=== PATIENT | male | born 1985 | race Caucasian/White ===

== ENCOUNTER 2017-04-29 13:39 | Inpatient (IN) | payer OTHER ==
[~2017-04-29] VITALS: Ht 180.3 cm; Wt 125.0 kg
[~2017-04-29 13:39] MED LIST: CLIN-73 PO; TRAM50TA2 PO
[2017-04-29 13:44] VITALS: Ht 180.3 cm; Wt 125.0 kg
[2017-04-29] MEDS ORDERED: ONDANSETRON 4 MG INJ IV STA (14:26)
[2017-04-29] MEDS ORDERED: KETOROLAC 30 MG INJ IV STA (14:26)
[2017-04-29] MEDS ORDERED: morphine 4 MG/ML VIAL IV STA (14:26)
[2017-04-29] MEDS ORDERED: SODIUM CHLORIDE 0.9% 1L BAG IV* STA (14:26)
[2017-04-29] MEDS ORDERED: PIPER-TAZO 3.375 GM IV (PMX) 100 ML IVPB STA (14:26)
[2017-04-29] MEDS ORDERED: VANCOMYCIN 1 GM (PMX) 250 ML IVPB ONE (14:30)
[2017-04-29 14:34] LABS: BASOPHILS % 0.3 % (0.0-2.0); EOSINOPHILS # 0.1 10^3/ul (0.0-0.5); HEMATOCRIT 42.8 % (42.0-52.0); HEMOGLOBIN 14.4 g/dl (14.0-18.0); LYMPHOCYTES # 2.1 10^3/ul (0.8-2.9); MEAN CORPUSCULAR HGB CONC 33.6 g/dl (32.0-37.0); MEAN CORPUSCULAR VOLUME 83.1 fl (82.0-101.0); MEAN PLATELET VOLUME 9.2 fl (7.4-10.4); MONOCYTE # 0.6 10^3/ul (0.3-0.9); MONOCYTES % 8.9 % (0.0-11.0); NEUTROPHIL # 4.3 10^3/ul (1.6-7.5); NEUTROPHILS % 59.4 % (39.0-77.0); PLATELET COUNT 238 10^3/UL (140-415); RED BLOOD COUNT 5.15 10^6/ul (4.70-6.10); RED CELL DISTRIBUTION WIDTH 12.4 % (11.5-14.5); WHITE BLOOD COUNT 7.2 10^3/ul (4.8-10.8)
[2017-04-29 14:46] LABS: INR 0.96; PROTIME 12.8 Sec (12.2-14.2)
[2017-04-29 14:47] LABS: PARTIAL THROMBOPLASTIN TIME 28.1 Sec (25.0-35.0)
[2017-04-29 14:51] LABS: ALBUMIN 4.1 g/dl (3.3-4.9); ALBUMIN/GLOBULIN RATIO 1.24; BILIRUBIN,INDIRECT 0.4 mg/dl (0-1.1); BILIRUBIN,TOTAL 0.4 mg/dl (0.2-1.3); CALCIUM 9.3 mg/dl (8.4-10.2); CREATININE 0.82 mg/dl (0.61-1.24); POTASSIUM 4.4 mmol/L (3.5-5.1); TOTAL PROTEIN 7.4 g/dl (6.1-8.1)
[2017-04-29 15:11] LABS: ADD UMIC NO; UR ASCORBIC ACID NEGATIVE (NEGATIVE); UR BILIRUBIN (Dip) NEGATIVE (NEGATIVE); UR BLOOD (Dip) NEGATIVE (NEGATIVE); UR CLARITY CLEAR (CLEAR); UR COLOR YELLOW (YELLOW); UR GLUCOSE (Dip) NEGATIVE (NEGATIVE); UR KETONES (Dip) NEGATIVE (NEGATIVE); UR LEUKOCYTE ESTERASE (Dip) NEGATIVE Leu/ul (NEGATIVE); UR NITRITE (Dip) NEGATIVE (NEGATIVE); UR SPECIFIC GRAVITY (Dip) 1.019 (1.003-1.030); UR TOTAL PROTEIN (Dip) NEGATIVE (NEGATIVE); UR UROBILINOGEN (Dip) NEGATIVE (NEGATIVE)
[2017-04-29] MEDS ORDERED: METHOCARBAMOL 750 MG TAB PO ONE (16:00)
[2017-04-29] MEDS ORDERED: ONDANSETRON 4 MG INJ IV PRN (17:00)
[2017-04-29 17:01] VITALS: TEMP 98.7
[2017-04-29] MEDS ORDERED: SOD CHLORIDE 0.9% 1,000 ML IV SCH (17:03)
--- NOTE | 2017-04-29 17:04 | ERA ---
ER Documentation Chief Complaint Date/Time DATE: 04/29/17 TIME: 17:01 Chief Complaint BILAT LOWER EXT SWELLING WORSE X 2WEEKS HPI 32-year-old male presents for increasing lower extremity edema for 2 weeks. Has been on doxycycline and Bactrim for the pain he states. Says that he has very bad pain including in his back and he took an OxyContin before he came in. He requests medication that is stronger. No fevers or chills. ROS All systems reviewed and are negative except as per history of present illness. Medications Home Meds Active Scripts Tramadol HCl (Tramadol HCl) 50 Mg Tablet, 50 MG PO Q8H Y for PAIN, #120 TAB Prov:OZZIE GROSS MD 05/29/16 Clindamycin Hcl* (Clindamycin Hcl*) 300 Mg Capsule, 600 MG PO Q8 for 8 Days, CAP Prov:OZZIE GROSS MD 05/29/16 Allergies Allergies: Coded Allergies: acetaminophen (Verified Allergy, Unknown, 05/26/16) codeine (Verified Allergy, Unknown, 05/26/16) PMhx/Soc History of Surgery: Yes (RIGHT KNEE SURGERY ) Anesthesia Reaction: No Hx Neurological Disorder: No Hx Respiratory Disorders: No Hx Cardiac Disorders: No Hx Psychiatric Problems: No Hx Miscellaneous Medical Probl: No Hx Alcohol Use: No Hx Substance Use: No Hx Tobacco Use: No Smoking Status: Never smoker Physical Exam Vitals Vital Signs Date Time Temp Pulse Resp B/P Pulse Ox O2 Delivery O2 Flow Rate FiO2 04/29/17 13:44 98.3 75 18 137/79 98 Physical Exam Const: [] No distress Head: Atraumatic Eyes: Normal Conjunctiva ENT: Normal External Ears, Nose and Mouth. Neck: Full range of motion..~ No meningismus. Resp: Clear to auscultation bilaterally Cardio: Regular rate and rhythm, no murmurs Abd: Soft, non tender, non distended. Normal bowel sounds Skin: No petechiae or rashes Ext: No cyanosis, bilateral lower extremity swelling with redness and calor. Distal pulses intact all 4 extremities Neur: Awake and alert and oriented 3, no focal deficits Psych: Normal Mood and Affect Result Diagram: 04/29/17 1415 04/29/17 1415 Results 24 hrs Laboratory Tests Test 04/29/17 14:15 04/29/17 14:55 04/29/17 16:05 White Blood Count 7.210^3/ul Red Blood Count 5.1510^6/ul Hemoglobin 14.4g/dl Hematocrit 42.8% Mean Corpuscular Volume 83.1fl Mean Corpuscular Hemoglobin 28.0pg Mean Corpuscular Hemoglobin Concent 33.6g/dl Red Cell Distribution Width 12.4% Platelet Count 12260^3/UL Mean Platelet Volume 9.2fl Neutrophils % 59.4% Lymphocytes % 29.0% Monocytes % 8.9% Eosinophils % 2.0% Basophils % 0.3% Nucleated Red Blood Cells % 0.0/100WBC Neutrophils # 4.310^3/ul Lymphocytes # 2.110^3/ul Monocytes # 0.610^3/ul Eosinophils # 0.110^3/ul Basophils # 0.010^3/ul Nucleated Red Blood Cells # 0.010^3/ul Prothrombin Time 12.8Sec Prothrombin Time Ratio 1.0 INR International Normalized Ratio 0.96 Activated Partial Thromboplast Time 28.1Sec Sodium Level 141mmol/L Potassium Level 4.4mmol/L Chloride Level 101mmol/L Carbon Dioxide Level 27mmol/L Anion Gap 17 Blood Urea Nitrogen 13mg/dl Creatinine 0.82mg/dl Glucose Level 93mg/dl Lactic Acid Level 1.2mmol/L 0.8mmol/L Calcium Level 9.3mg/dl Total Bilirubin 0.4mg/dl Direct Bilirubin 0.00mg/dl Indirect Bilirubin 0.4mg/dl Aspartate Amino Transf (AST/SGOT) 24IU/L Alanine Aminotransferase (ALT/SGPT) 46IU/L Alkaline Phosphatase 95IU/L Total Protein 7.4g/dl Albumin 4.1g/dl Globulin 3.30g/dl Albumin/Globulin Ratio 1.24 Urine Color YELLOW Urine Clarity CLEAR Urine pH 7.0 Urine Specific [place] 1.019 Urine Ketones NEGATIVEmg/dL Urine Nitrite NEGATIVEmg/dL Urine Bilirubin NEGATIVEmg/dL Urine Urobilinogen NEGATIVEmg/dL Urine Leukocyte Esterase NEGATIVELeu/ul Urine Hemoglobin NEGATIVEmg/dL Urine Glucose NEGATIVEmg/dL Urine Total Protein NEGATIVEmg/dl Current Medications Medications (Trade) Dose Ordered Sig/Morgan Route PRN Reason Start Time Stop Time Status Last Admin Dose Admin Sodium Chloride 3880 ml 3,880 ml BOLUS OVER 2 HOURS STAT IV* 04/29/17 14:26 04/29/17 14:28 DC 04/29/17 14:48 Vancomycin HCl 250 ml @ 125 mls/hr ONCE ONCE IVPB 04/29/17 14:30 04/29/17 16:29 DC 04/29/17 16:27 Piperacillin Sod/ Tazobactam Sod (Zosyn 3.375gm/ 100 ml (Pmx)) 100 ml @ 200 mls/hr ONCE STAT IVPB 04/29/17 14:26 04/29/17 14:55 DC 04/29/17 14:47 Ondansetron HCl (Zofran Inj) 4 mg ONCE STAT IV 04/29/17 14:26 04/29/17 14:29 DC 04/29/17 14:52 Morphine Sulfate (morphine) 4 mg ONCE STAT IV 04/29/17 14:26 04/29/17 14:29 DC 04/29/17 14:47 Ketorolac Tromethamine (Toradol) 30 mg ONCE STAT IV 04/29/17 14:26 04/29/17 14:29 DC 04/29/17 14:47 Methocarbamol (Robaxin) 750 mg ONCE ONCE PO 04/29/17 16:00 04/29/17 16:01 DC 04/29/17 16:56 Ondansetron HCl (Zofran Inj) 4 mg BRIDGE ORDER PRN IV NAUSEA AND/OR VOMITING 04/29/17 17:00 04/30/17 16:59 Procedures/MDM Bilateral extremity cellulitis with failed outpatient treatment. No signs of sepsis. Patient was given IV fluid as well as vancomycin and Zosyn. Is also given morphine and Toradol for the pain as well as Robaxin for back pain that he mentioned. Is being admitted to Dr. Ferguson in the medical surgical floor. Departure Diagnosis: Primary Impression: Bilateral lower leg cellulitis Additional Impression: Failure of outpatient treatment JUDSON HENSLEY DO Apr 29, 2017 17:04
[2017-04-29] MEDS ORDERED: DOCUSATE SODIUM 100 MG CAP PO PRN (17:30)
[2017-04-29] MEDS ORDERED: NA PHOSPHATE/BIPHOS 133 ML ENEMA PR PRN (17:30)
[2017-04-29] MEDS ORDERED: traMADol 50 MG TAB PO PRN (17:30)
[2017-04-29] MEDS ORDERED: LORAZEPAM 2 MG INJ IV PRN (17:30)
[2017-04-29] MEDS ORDERED: ACETAMINOPHEN 325 MG TAB PO PRN (17:30)
[2017-04-29] MEDS ORDERED: ALBUTEROL/IPRATROPIUM (NEB) 3 ML AMP HHN PRN (17:30)
[2017-04-29] MEDS ORDERED: hydrALAzine 20 MG INJ IV PRN (17:30)
[2017-04-29] MEDS ORDERED: MAGNESIUM HYDROXIDE 30ML CUP PO PRN (17:30)
[2017-04-29] MEDS ORDERED: NITROGLYCERIN (SL) 0.4 MG TAB SL PRN (17:30)
[2017-04-29] MEDS ORDERED: VANCOMYCIN IV PER PHARMACY XX SCH (17:30)
[2017-04-29] MEDS ORDERED: NACL 0.9% 3 ML SYG IV SCH (17:30)
[2017-04-29 17:50] VITALS: BP 124/62; RESP 18
[2017-04-29] MEDS ORDERED: PIPER-TAZO 3.375 GM IV (PMX) 100 ML IVPB SCH (18:00)
[2017-04-29] MEDS: morphine 2 MG INJ IV PRN (18:17)
[2017-04-29] MEDS ORDERED: VANCOMYCIN 1 GM in NS 250 ML IVPB ONE (19:30)
--- NOTE | 2017-04-29 19:35 | HP ---
Date/Time of Note Date/Time of Note DATE: 04/29/17 TIME: 19:34 Assessment/Plan VTE Prophylaxis VTE Prophylaxis Intervention: heparin Assessment/Plan Chief Complaint/Hosp Course Assessment and plan: 32-year-old male obese, he prior history of cellulitis, comes in with a lateral lower extremity cellulitis failing outpatient antibiotic treatment. 1. Lower extremity redness and cellulitis: [facility] TSH A1c lipid panel. Start broad-spectrum antibiotics, IV fluids. -Tylenol as needed pain and fevers, follow final culture results and CBC in the morning, infectious disease consult 2. Obesity: Education about weight reduction 3. Possible depression: Ativan as needed 4. Drug-seeking behavior: Low-dose morphine and tramadol for now, monitor Problems: HPI/ROS Admit Date/Time Admit Date/Time Apr 29, 2017 at 16:47 Hx of Present Illness 32-year-old male past medical history of obesity, prior cellulitis, possible drug-seeking behavior, meningitis, questionable psychiatric history, who presents with lower extremity redness and pain. He says his symptoms have been going on for the last few weeks. He does not quantify anymore. He says his primary care doctor Dr. Tineo in [place] about 10 days ago prescribed him p.o. antibiotics he believes clindamycin and Bactrim p.o. he took these for the full 10 days he claims, but his symptoms did not improve. Denied any fevers or chills, no chest pain no shortness of breath no upper or lower GI bleeding, no diarrhea or constipation, no nausea or vomiting. PMH/Family/Social Past Surgical History Past Surgical Hx: other Family History Significant Family History: no pertinent family hx Social History Alcohol Use: none (Right knee surgery) Smoking Status: Never smoker Drug Use: none Exam/Review of Systems Vital Signs Vitals Vital Signs Date Time Temp Pulse Resp B/P Pulse Ox O2 Delivery O2 Flow Rate FiO2 04/29/17 17:50 98.1 62 18 124/62 99 04/29/17 17:01 Room Air Exam Exam Const: No distress Head: Atraumatic Eyes: Normal Conjunctiva ENT: Normal External Ears, Nose and Mouth. Neck: Full range of motion..~ No meningismus. Resp: Clear to auscultation bilaterally Cardio: Regular rate and rhythm, no murmurs Abd: Soft, non tender, non distended. Normal bowel sounds Skin: Significant redness in the facial area, upper extremities. Both are not warm. Significant redness in the bilateral lower extremities as well, warm to touch Ext: No cyanosis, but + bilateral lower extremity swelling with redness and calor. Distal pulses intact all 4 extremities Neur: Awake and alert and oriented 3, no focal deficits Psych: Normal Mood and Affect Labs Result Diagram: 04/29/17 1415 04/29/17 1415 Medications Medications Current Medications Ondansetron HCl (Zofran Inj) 4 mg Q6H PRN IV NAUSEA AND/OR VOMITING; Start 04/29 at 17:30 Acetaminophen (Tylenol Tab) 650 mg Q6H PRN PO PAIN LEVEL 1-3 OR FEVER; Start at 17:30 Morphine Sulfate (morphine) 1 mg Q6H PRN IV SEVERE PAIN LEVEL 7-10 Last administered on 04/29/17t 18:17; Admin Dose 1 MG; Start 04/29/17 at 17:30 Docusate Sodium (Colace) 100 mg Q12H PRN PO CONSTIPATION; Start 04/29/17 at 17: 30 Magnesium Hydroxide (Milk Of Mag) 30 ml DAILY PRN PO CONSTIPATION; Start at 17:30 Sodium Biphosphate/ Sodium Phosphate (Fleet Enema) 133 ml DAILY PRN [place] CONSTIPATION; Start 04/29/17 at 17:30 Heparin Sodium (Porcine) (Heparin (5000 Units/0.5 ml)) 5,000 unit Q12 SC ; Start 04/29/17 at 21:00 Lorazepam 0.5 mg 0.5 mg Q6H PRN IV ANXIETY; Start 04/29/17 at 17:30 Sodium Chloride (NS) 1,000 ml @ 100 mls/hr Q10H IV ; Start 04/29/17 at 17:03 Vancomycin HCl (Vanco Iv Per Pharmacy) VANCOMYCIN PER PHARMACY NOTE XX ; Start 04/29/17 at 17:30 Hydralazine HCl (Apresoline) 10 mg Q6H PRN IV SBP > 180; Start 04/29/17 at 17:30 Nitroglycerin (Nitroglycerin (Sl Tab) 0.4 Mg) 1 tab Q5M PRN SL ANGINA; Start at 17:30 Tramadol HCl 50 mg 50 mg Q8H PRN PO PAIN; Start 04/29/17 at 17:30 Piperacillin Sod/ Tazobactam Sod 100 ml @ 200 mls/hr Q6 IVPB ; Start 04/29/17 at 20:00 Vancomycin HCl 250 ml @ 125 mls/hr ONCE ONCE IVPB ; Start 04/29/17 at 19:30; Stop 04/29/17 at 21:29 Vancomycin HCl/ Sodium Chloride (Vancocin/NS) 250 ml @ 83.333 mls/ hr Q8H IVPB ; Start 04/30/17 at 04:00 Miscellaneous Information (*Rx Drug Level Order Reminder*) VANCO TROUGH ON 04/30 [place]... ONCE ONCE XX ; Start 04/30/17 at 19:00; Stop 04/30/17 at 19:01 ELIJAH MILLARD Apr 29, 2017 19:35
[2017-04-29] MEDS ORDERED: DOXY-220 PO (19:46)
[2017-04-29] MEDS ORDERED: HYDR-3498 PO (19:49)
[2017-04-29] MEDS ORDERED: DIVA125C2 PO (19:49)
[2017-04-29 20:00] VITALS: BP 129/85; RESP 20
[2017-04-29] MEDS: PIPER-TAZO 3.375 GM IV (PMX) 100 ML IVPB SCH (20:00)
--- NOTE | 2017-04-29 20:30 | CONS ---
Date/Time of Note Date/Time of Note DATE: 04/29/17 TIME: 20:29 Consultation Date/Type/Reason Admit Date/Time Apr 29, 2017 at 16:47 Date of Consultation: Apr 29, 2017 Type of Consultation: ID Reason for Consultation Bilateral le cellulitis Past Surgical History Past Surgical Hx: other Social History Alcohol Use: none (Right knee surgery) Smoking Status: Never smoker Drug Use: none Exam/Review of Systems Vital Signs Vitals Vital Signs Date Time Temp Pulse Resp B/P Pulse Ox O2 Delivery O2 Flow Rate FiO2 04/29/17 17:50 98.1 62 18 124/62 99 04/29/17 17:01 Room Air Results Result Diagram: 04/29/17 1415 04/29/17 1415 Results 24 hrs Laboratory Tests Test 04/29/17 14:15 04/29/17 14:55 04/29/17 16:05 White Blood Count 7.2 # Red Blood Count 5.15 Hemoglobin 14.4 Hematocrit 42.8 Mean Corpuscular Volume 83.1 Mean Corpuscular Hemoglobin 28.0 L Mean Corpuscular Hemoglobin Concent 33.6 Red Cell Distribution Width 12.4 Platelet Count 238 Mean Platelet Volume 9.2 # Neutrophils % 59.4 Lymphocytes % 29.0 Monocytes % 8.9 Eosinophils % 2.0 Basophils % 0.3 Nucleated Red Blood Cells % 0.0 Neutrophils # 4.3 Lymphocytes # 2.1 Monocytes # 0.6 Eosinophils # 0.1 Basophils # 0.0 Nucleated Red Blood Cells # 0.0 Prothrombin Time 12.8 Prothrombin Time Ratio 1.0 INR International Normalized Ratio 0.96 Activated Partial Thromboplast Time 28.1 Sodium Level 141 Potassium Level 4.4 Chloride Level 101 Carbon Dioxide Level 27 Anion Gap 17 H Blood Urea Nitrogen 13 Creatinine 0.82 Glucose Level 93 Lactic Acid Level 1.2 0.8 Calcium Level 9.3 Total Bilirubin 0.4 Direct Bilirubin 0.00 Indirect Bilirubin 0.4 Aspartate Amino Transf (AST/SGOT) 24 Alanine Aminotransferase (ALT/SGPT) 46 Alkaline Phosphatase 95 Total Protein 7.4 Albumin 4.1 Globulin 3.30 H Albumin/Globulin Ratio 1.24 Free Thyroxine 0.97 Urine Color YELLOW Urine Clarity CLEAR Urine pH 7.0 Urine Specific [place] 1.019 Urine Ketones NEGATIVE Urine Nitrite NEGATIVE Urine Bilirubin NEGATIVE Urine Urobilinogen NEGATIVE Urine Leukocyte Esterase NEGATIVE Urine Hemoglobin NEGATIVE Urine Glucose NEGATIVE Urine Total Protein NEGATIVE Medications Medications Current Medications Ondansetron HCl (Zofran Inj) 4 mg Q6H PRN IV NAUSEA AND/OR VOMITING; Start 04/29 at 17:30 Acetaminophen (Tylenol Tab) 650 mg Q6H PRN PO PAIN LEVEL 1-3 OR FEVER; Start at 17:30 Morphine Sulfate (morphine) 1 mg Q6H PRN IV SEVERE PAIN LEVEL 7-10 Last administered on 04/29/17t 18:17; Admin Dose 1 MG; Start 04/29/17 at 17:30 Docusate Sodium (Colace) 100 mg Q12H PRN PO CONSTIPATION; Start 04/29/17 at 17: 30 Magnesium Hydroxide (Milk Of Mag) 30 ml DAILY PRN PO CONSTIPATION; Start at 17:30 Sodium Biphosphate/ Sodium Phosphate (Fleet Enema) 133 ml DAILY PRN [place] CONSTIPATION; Start 04/29/17 at 17:30 Heparin Sodium (Porcine) (Heparin (5000 Units/0.5 ml)) 5,000 unit Q12 SC ; Start 04/29/17 at 21:00 Lorazepam 0.5 mg 0.5 mg Q6H PRN IV ANXIETY; Start 04/29/17 at 17:30 Sodium Chloride (NS) 1,000 ml @ 100 mls/hr Q10H IV ; Start 04/29/17 at 17:03 Vancomycin HCl (Vanco Iv Per Pharmacy) VANCOMYCIN PER PHARMACY NOTE XX ; Start 04/29/17 at 17:30 Hydralazine HCl (Apresoline) 10 mg Q6H PRN IV SBP > 180; Start 04/29/17 at 17:30 Nitroglycerin (Nitroglycerin (Sl Tab) 0.4 Mg) 1 tab Q5M PRN SL ANGINA; Start at 17:30 Tramadol HCl 50 mg 50 mg Q8H PRN PO PAIN; Start 04/29/17 at 17:30 Piperacillin Sod/ Tazobactam Sod 100 ml @ 200 mls/hr Q6 IVPB ; Start 04/29/17 at 20:00 Vancomycin HCl 250 ml @ 125 mls/hr ONCE ONCE IVPB ; Start 04/29/17 at 19:30; Stop 04/29/17 at 21:29 Vancomycin HCl/ Sodium Chloride (Vancocin/NS) 250 ml @ 83.333 mls/ hr Q8H IVPB ; Start 04/30/17 at 04:00 Miscellaneous Information (*Rx Drug Level Order Reminder*) VANCO TROUGH ON 04/30 [place]... ONCE ONCE XX ; Start 04/30/17 at 19:00; Stop 04/30/17 at 19:01 DAVID BARNES MD Apr 29, 2017 20:30
[2017-04-29] MEDS: HEPARIN 5,000 UNIT/0.5 ML VIAL SC SCH (21:00)
[2017-04-30] MEDS ORDERED: HYDROCODONE/APAP (5/325) TAB PO PRN
[2017-04-30] MEDS: morphine 2 MG INJ IV PRN ×2 (00:17→11:13)
[2017-04-30] MEDS: PIPER-TAZO 3.375 GM IV (PMX) 100 ML IVPB SCH ×6 (01:59→23:42)
[2017-04-30 02:00] VITALS: BP 130/75; RESP 20
[2017-04-30] MEDS: VANCOMYCIN 1.25 GM in SOD CHLORIDE 0.9% 250 ML IVPB SCH ×3 (04:11→20:00)
--- NOTE | 2017-04-30 06:23 | CONS ---
DATE OF ADMISSION: 04/29/2017 DATE OF CONSULTATION: 04/29/2017 Infectious Disease Consultation REASON FOR CONSULTATION: Antibiotic management. Mirza Masters is a 32-year-old male, with a number of problems and comes in with lower extremity redness and cellulitis and is being seen for antibiotic management. His past problems include: 1. Obesity. 2. Prior cellulitis. 3. History of meningitis. 4. Possible drug-seeking behavior. Patient presents with lower extremity redness and pain. He says his symptoms began over the last few weeks. About 10 days ago he was given oral antibiotics, probably clindamycin and Bactrim. He took these for 10 days but his symptoms did not improve. He denies any fever or chills. He has no shortness of breath. On admission, his white count 7.2, H and H 14.4, 42.8, platelet count 238,000, BUN and creatinine 13/0.82. PAST MEDICAL HISTORY: As outlined. PAST SURGICAL HISTORY: He had a history of right knee surgery. SOCIAL HISTORY: Does not smoke, drink, or abuse drugs. ALLERGIES: NONE TO PENICILLIN, SULFA, OR FOODS. MEDICATION: Per chart. REVIEW OF SYSTEMS: As per HPI. PHYSICAL EXAMINATION: GENERAL: Patient is a well-developed, moderately obese male who is alert, responsive, no acute distress. VITAL SIGNS: Stable. He is afebrile. SKIN: Without generalized rash. HEENT: Within normal limits. NECK: Supple. Lymph nodes nonpalpable. CHEST: Decreased breath sounds at the bases. HEART: Without murmur or gallop. ABDOMEN: Soft, nontender, nondistended, without organomegaly or splenomegaly or masses. EXTREMITIES: He has redness in the facial area, but he has significant redness in both lower extremities, which are warm to the touch. He has no cyanosis or clubbing. He has some swelling and redness and warmth in the distal extremities. RECTAL/GENITAL: Deferred. NEUROLOGICAL: No focal neurological abnormality. ASSESSMENT: As noted, on admission his white count was 7.2, patient was started on vancomycin and Zosyn. He had blood cultures drawn. He should have his legs elevated on 3 pillows. I will dictate my findings to the hospitalists. Dictated By: Matty Donald MD JD/debbie/massiel /Document#: [id number]
[2017-04-30] MEDS: HEPARIN 5,000 UNIT/0.5 ML VIAL SC SCH ×3 (08:28→21:00)
--- NOTE | 2017-04-30 12:59 | PN ---
Date/Time of Note Date/Time of Note DATE: 04/30/17 TIME: 12:54 Assessment/Plan VTE Prophylaxis VTE Prophylaxis Intervention: heparin Lines/Catheters IV Catheter Type (from Nrs): Peripheral IV Assessment/Plan Chief Complaint/Hosp Course Assessment and plan: 32-year-old male obese, he prior history of cellulitis, comes in with bilateral upper and lower extremity cellulitis, along with some abnormal facial redness, failing outpatient antibiotic treatment. 1. Facial plus bilateral upper and lower extremity redness and cellulitis: Slightly improved since yesterday, still present. [facility] Continue Zosyn and vancomycin broad-spectrum antibiotics, IV fluids. -Follow-up infectious disease recommendations -Tylenol as needed pain and fevers, follow final culture results and CBC in the morning 2. Obesity: Education about weight reduction 3. Possible depression/anger issue: Ativan as needed. If worsens, consider telemetry psych consult 4. Drug-seeking behavior: Patient has vague complaints of abdominal pain and low back pain, vital signs are normal -For now continue low-dose morphine and tramadol as needed only, as there is no need to escalate the pain medicines at this time, monitor Problems: Subjective 24 Hr Interval Summary Free Text/Dictation Seen by infectious disease team. Still asking for pain medicines and complaining about the food, being somewhat difficult with the nurses at times about these issues. Appears to have refused lab work this morning. Exam/Review of Systems Vital Signs Vitals Vital Signs Date Time Temp Pulse Resp B/P Pulse Ox O2 Delivery O2 Flow Rate FiO2 04/30/17 02:00 98.6 75 20 130/75 99 04/29/17 17:01 Room Air Intake and Output 04/29/17 04/29/17 04/30/17 15:00 23:00 07:00 Intake Total 770 ml Output Total 1700 ml Balance -930 ml Exam Const: Presently no distress Head: Atraumatic Eyes: Normal Conjunctiva ENT: Normal External Ears, Nose and Mouth. Neck: Full range of motion..~ No meningismus. Resp: Clear to auscultation bilaterally Cardio: Regular rate and rhythm, no murmurs Abd: Soft, non tender, non distended. Normal bowel sounds Skin: Less but still significant redness in the facial area + bilateral upper extremities, some warmth noted. Still some significant redness in the bilateral lower extremities as well, warm to touch. Ext: No cyanosis, but + bilateral lower extremity swelling with redness and calor. Distal pulses intact all 4 extremities Neur: Awake and alert and oriented 3, no focal deficits Psych: Occasional anger outbursts at times Results Result Diagram: 04/29/17 1415 04/29/17 1415 Results 24 hrs Laboratory Tests Test 04/29/17 14:15 04/29/17 14:55 04/29/17 16:05 04/29/17 19:57 White Blood Count 7.2 # Red Blood Count 5.15 Hemoglobin 14.4 Hematocrit 42.8 Mean Corpuscular Volume 83.1 Mean Corpuscular Hemoglobin 28.0 L Mean Corpuscular Hemoglobin Concent 33.6 Red Cell Distribution Width 12.4 Platelet Count 238 Mean Platelet Volume 9.2 # Neutrophils % 59.4 Lymphocytes % 29.0 Monocytes % 8.9 Eosinophils % 2.0 Basophils % 0.3 Nucleated Red Blood Cells % 0.0 Neutrophils # 4.3 Lymphocytes # 2.1 Monocytes # 0.6 Eosinophils # 0.1 Basophils # 0.0 Nucleated Red Blood Cells # 0.0 Prothrombin Time 12.8 Prothrombin Time Ratio 1.0 INR International Normalized Ratio 0.96 Activated Partial Thromboplast Time 28.1 Sodium Level 141 Potassium Level 4.4 Chloride Level 101 Carbon Dioxide Level 27 Anion Gap 17 H Blood Urea Nitrogen 13 Creatinine 0.82 Glucose Level 93 Lactic Acid Level 1.2 0.8 1.6 Calcium Level 9.3 Total Bilirubin 0.4 Direct Bilirubin 0.00 Indirect Bilirubin 0.4 Aspartate Amino Transf (AST/SGOT) 24 Alanine Aminotransferase (ALT/SGPT) 46 Alkaline Phosphatase 95 Total Protein 7.4 Albumin 4.1 Globulin 3.30 H Albumin/Globulin Ratio 1.24 Free Thyroxine 0.97 Urine Color YELLOW Urine Clarity CLEAR Urine pH 7.0 Urine Specific [place] 1.019 Urine Ketones NEGATIVE Urine Nitrite NEGATIVE Urine Bilirubin NEGATIVE Urine Urobilinogen NEGATIVE Urine Leukocyte Esterase NEGATIVE Urine Hemoglobin NEGATIVE Urine Glucose NEGATIVE Urine Total Protein NEGATIVE Medications Medications Current Medications Ondansetron HCl (Zofran Inj) 4 mg Q6H PRN IV NAUSEA AND/OR VOMITING; Start 04/29 at 17:30 Acetaminophen (Tylenol Tab) 650 mg Q6H PRN PO PAIN LEVEL 1-3 OR FEVER; Start at 17:30 Morphine Sulfate (morphine) 1 mg Q6H PRN IV SEVERE PAIN LEVEL 7-10 Last administered on 04/30/17 11:13; Admin Dose 1 MG; Start 04/29/17 at 17:30 Docusate Sodium (Colace) 100 mg Q12H PRN PO CONSTIPATION; Start 04/29/17 at 17: 30 Magnesium Hydroxide (Milk Of Mag) 30 ml DAILY PRN PO CONSTIPATION; Start at 17:30 Sodium Biphosphate/ Sodium Phosphate (Fleet Enema) 133 ml DAILY PRN [place] CONSTIPATION; Start 04/29/17 at 17:30 Heparin Sodium (Porcine) (Heparin (5000 Units/0.5 ml)) 5,000 unit Q12 SC ; Start 04/29/17 at 21:00 Lorazepam (Ativan) 0.5 mg Q6H PRN IV ANXIETY; Start 04/29/17 at 17:30 Vancomycin HCl (Vanco Iv Per Pharmacy) VANCOMYCIN PER PHARMACY NOTE XX ; Start 04/29/17 at 17:30 Hydralazine HCl (Apresoline) 10 mg Q6H PRN IV SBP > 180; Start 04/29/17 at 17:30 Nitroglycerin (Nitroglycerin (Sl Tab) 0.4 Mg) 1 tab Q5M PRN SL ANGINA; Start at 17:30 Tramadol HCl 50 mg 50 mg Q8H PRN PO PAIN; Start 04/29/17 at 17:30 Piperacillin Sod/ Tazobactam Sod 100 ml @ 200 mls/hr Q6 IVPB Last administered on 04/30/17 12:19; Admin Dose 200 MLS/HR; Start 04/29/17 at 20:00 Vancomycin HCl/ Sodium Chloride (Vancocin/NS) 250 ml @ 83.333 mls/ hr Q8H IVPB Last administered on 04/30/17 04:11; Admin Dose 83.333 MLS/HR; Start 04/30/17 at 04:00 Miscellaneous Information (*Rx Drug Level Order Reminder*) VANCO TROUGH ON 04/30 [place]... ONCE ONCE XX ; Start 04/30/17 at 19:00; Stop 04/30/17 at 19:01 ELIJAH MILLARD Apr 30, 2017 12:59
[2017-04-30] MEDS ORDERED: CEPASTAT LOZENGE MT PRN (13:00)
[2017-04-30 14:36] VITALS: BP 134/62; RESP 19
[2017-04-30 14:38] LABS: BASOPHILS % 0.3 % (0.0-2.0); EOSINOPHILS # 0.3 10^3/ul (0.0-0.5); EOSINOPHILS % 3.9 % (0.0-7.0); HEMATOCRIT 41.7 % (42.0-52.0); LYMPHOCYTES # 1.7 10^3/ul (0.8-2.9); LYMPHOCYTES % 25.8 % (15.0-51.0); MEAN CORPUSCULAR HEMOGLOBIN 28.2 pg (29.0-33.0); MEAN CORPUSCULAR HGB CONC 33.6 g/dl (32.0-37.0); MEAN CORPUSCULAR VOLUME 84.1 fl (82.0-101.0); MEAN PLATELET VOLUME 9.3 fl (7.4-10.4); MONOCYTE # 0.5 10^3/ul (0.3-0.9); MONOCYTES % 6.9 % (0.0-11.0); NEUTROPHIL # 4.1 10^3/ul (1.6-7.5); NEUTROPHILS % 62.8 % (39.0-77.0); PLATELET COUNT 216 10^3/UL (140-415); RED BLOOD COUNT 4.96 10^6/ul (4.70-6.10); RED CELL DISTRIBUTION WIDTH 12.6 % (11.5-14.5); WHITE BLOOD COUNT 6.5 10^3/ul (4.8-10.8)
[2017-04-30 14:57] LABS: CHOL/HDL RATIO 5.1 RATIO
[2017-04-30 14:58] LABS: CALCIUM 9.4 mg/dl (8.4-10.2); CREATININE 0.89 mg/dl (0.61-1.24); MAGNESIUM 2.2 mg/dl (1.7-2.5); PHOSPHORUS 3.8 mg/dl (2.5-4.9); POTASSIUM 4.4 mmol/L (3.5-5.1)
[2017-04-30 15:29] LABS: THYROID STIMULATING HORMONE 2.44 MIU/L (0.465-4.680)
--- NOTE | 2017-04-30 17:23 | CONS ---
Date/Time of Note Date/Time of Note DATE: 04/30/17 TIME: 16:50 Assessment/Plan Assessment/Plan Chief Complaint/Hosp Course ID PROGRESS NOTE CURRENT ABX: =>Vanco IV #2 + Zosyn #2 24H INTERVAL SUMMARY * Obese male sound asleep snoring, no dyspnea, no apnea noted -> does not respond to verbal stimuli, responds to tactile stimuli * NO fevers, WBC normalized * RLEXT with chronic venous stasis hyperpigmentation thickened exfoliating skin with superimposed erythema = dirty feet/ he is so large, he is likely not able to wash or groom his feet/nails. EXAM Obese, VSS, Afebrile, NAD HEENT within normal limits Neck is supple Chest Equal chest rise bilaterally without dyspnea on observation CV: radial pulse RRR Abdomen is soft, nontender Extremities: RUEXT edema w/chronic venous hyperpigmentation thickened skin w/ scale, superimposed erythema, dirty feet SKIN: no rash, no diaphoresis ID ASSESSMENT 32 yo M PMHx obesity, meningitis, admit with: 1. Acute recurrent right lateral lower extremity cellulitis failing outpatient antibiotic treatment. * Recurrent issue with 5 prior visits to [facility] for same complaint. * Followed by Dr. Tineo for this problem outpatient Dr. Raul Tineo MD ; [address], [place] [address]: 2. Persistent RLEXT lymphedema from his obesity => Venous insufficiency * (-)DVT Venous Doppler x2 @ [facility] (05/2016 & 07/2015) * 08/09/2015 Tibia/Fibula X-Ray: Normal right tibia and fibula. 3. RLEXT leg pain 4. Hx of R arthroscopic knee surgery 2000 5. Chronic back pain -> Hx of OxyContin + Robaxin Rx 6. Psych Dx NOS: "Anger & Frustration" issues per patient report 7. Recurrent requests for strong opioids for his pain issues; (+)Drug-seeking behavior. ABX ALLERGY: NONE to ABX CURRENT ABX:=>Vanco IV #2 + Zosyn #2 ID RECOMMENDATIONS 1. Check MRSA Nares 2. Continue IV ABX -> Anticipate change ABX to PO Bactrim + Keflex when edema and erythema improves. . Problems: Consultation Date/Type/Reason Admit Date/Time Apr 29, 2017 at 16:47 Initial Consult Date 04/29/17 Type of Consultation: ID Exam/Review of Systems Vital Signs Vitals Vital Signs Date Time Temp Pulse Resp B/P Pulse Ox O2 Delivery O2 Flow Rate FiO2 04/30/17 14:36 98.2 66 19 134/62 96 04/29/17 17:01 Room Air Intake and Output 04/29/17 04/29/17 04/30/17 15:00 23:00 07:00 Intake Total 770 ml Output Total 1700 ml Balance -930 ml Results Result Diagram: 04/30/17 1354 04/30/17 1354 Results 24 hrs Laboratory Tests Test 04/29/17 19:57 04/30/17 13:54 Lactic Acid Level 1.6 White Blood Count 6.5 Red Blood Count 4.96 Hemoglobin 14.0 Hematocrit 41.7 L Mean Corpuscular Volume 84.1 Mean Corpuscular Hemoglobin 28.2 L Mean Corpuscular Hemoglobin Concent 33.6 Red Cell Distribution Width 12.6 Platelet Count 216 Mean Platelet Volume 9.3 Neutrophils % 62.8 Lymphocytes % 25.8 Monocytes % 6.9 Eosinophils % 3.9 Basophils % 0.3 Nucleated Red Blood Cells % 0.0 Neutrophils # 4.1 Lymphocytes # 1.7 Monocytes # 0.5 Eosinophils # 0.3 Basophils # 0.0 Nucleated Red Blood Cells # 0.0 Sodium Level 140 Potassium Level 4.4 Chloride Level 103 Carbon Dioxide Level 26 Anion Gap 15 Blood Urea Nitrogen 11 Creatinine 0.89 Glucose Level 89 Hemoglobin A1c 5.1 Calcium Level 9.4 Phosphorus Level 3.8 Magnesium Level 2.2 Triglycerides Level 161 H Cholesterol Level 166 LDL Cholesterol, Calculated 102 HDL Cholesterol 32 Cholesterol/HDL Ratio 5.1 Thyroid Stimulating Hormone (TSH) 2.440 Medications Medications Current Medications Ondansetron HCl (Zofran Inj) 4 mg Q6H PRN IV NAUSEA AND/OR VOMITING; Start 04/29 at 17:30 Acetaminophen (Tylenol Tab) 650 mg Q6H PRN PO PAIN LEVEL 1-3 OR FEVER; Start at 17:30 Morphine Sulfate (morphine) 1 mg Q6H PRN IV SEVERE PAIN LEVEL 7-10 Last administered on 04/30/17t 11:13; Admin Dose 1 MG; Start 04/29/17 at 17:30 Docusate Sodium (Colace) 100 mg Q12H PRN PO CONSTIPATION; Start 04/29/17 at 17: 30 Magnesium Hydroxide (Milk Of Mag) 30 ml DAILY PRN PO CONSTIPATION; Start at 17:30 Sodium Biphosphate/ Sodium Phosphate (Fleet Enema) 133 ml DAILY PRN [place] CONSTIPATION; Start 04/29/17 at 17:30 Heparin Sodium (Porcine) (Heparin (5000 Units/0.5 ml)) 5,000 unit Q12 SC ; Start 04/29/17 at 21:00 Lorazepam (Ativan) 0.5 mg Q6H PRN IV ANXIETY; Start 04/29/17 at 17:30 Vancomycin HCl (Vanco Iv Per Pharmacy) VANCOMYCIN PER PHARMACY NOTE XX ; Start 04/29/17 at 17:30 Hydralazine HCl (Apresoline) 10 mg Q6H PRN IV SBP > 180; Start 04/29/17 at 17:30 Nitroglycerin (Nitroglycerin (Sl Tab) 0.4 Mg) 1 tab Q5M PRN SL ANGINA; Start at 17:30 Tramadol HCl 50 mg 50 mg Q8H PRN PO PAIN Last administered on 04/30/17 14:50; Admin Dose 50 MG; Start 04/29/17 at 17:30 Piperacillin Sod/ Tazobactam Sod 100 ml @ 200 mls/hr Q6 IVPB Last administered on 04/30/17 12:19; Admin Dose 200 MLS/HR; Start 04/29/17 at 20:00 Vancomycin HCl/ Sodium Chloride (Vancocin/NS) 250 ml @ 83.333 mls/ hr Q8H IVPB Last administered on 04/30/17 12:56; Admin Dose 83.333 MLS/HR; Start 04/30/17 at 04:00 Miscellaneous Information (*Rx Drug Level Order Reminder*) VANCO TROUGH ON 04/30 DE... ONCE ONCE XX ; Start 04/30/17 at 19:00; Stop 04/30/17 at 19:01 Phenol (Cepastat Lozenge) 1 lozenge Q1H PRN [place] SORE THROAT Last administered on 04/30/17 13:19; Admin Dose 1 LOZENGE; Start 04/30/17 at 13:00 MIGUELITO MAYERS NP Apr 30, 2017 17:01
[2017-04-30] MEDS: morphine 4 MG/ML VIAL IV PRN (20:29)
[2017-04-30] MEDS ORDERED: BACLOFEN 10 MG TAB PO PRN (20:30)
[2017-04-30 21:47] VITALS: BP 125/70; RESP 16
[2017-05-01] MEDS: VANCOMYCIN 1.25 GM in SOD CHLORIDE 0.9% 250 ML IVPB SCH ×3 (04:00→20:07)
[2017-05-01] MEDS: morphine 4 MG/ML VIAL IV PRN (06:35)
[2017-05-01] MEDS: PIPER-TAZO 3.375 GM IV (PMX) 100 ML IVPB SCH ×3 (06:35→17:09)
[2017-05-01 06:42] VITALS: BP 130/60; PULSE 61; RESP 20
[2017-05-01] MEDS: HYDROmorphONE 2 MG/ML SYG IV PRN ×3 (12:52→22:20)
[2017-05-01] MEDS ORDERED: HYDROCODONE/APAP (10/325) TAB NGT PRN (13:00)
[2017-05-01 14:33] VITALS: BP 135/73; RESP 18
[2017-05-01] MEDS: ONDANSETRON 4 MG INJ IV PRN ×2 (15:27→22:27)
[2017-05-01] MEDS ORDERED: ACETAMINOPHEN 325 MG TAB PO PRN (15:30)
[2017-05-01 16:29] LABS: BASOPHILS % 0.4 % (0.0-2.0); EOSINOPHILS # 0.2 10^3/ul (0.0-0.5); EOSINOPHILS % 3.5 % (0.0-7.0); HEMATOCRIT 43.5 % (42.0-52.0); HEMOGLOBIN 14.2 g/dl (14.0-18.0); LYMPHOCYTES # 1.4 10^3/ul (0.8-2.9); LYMPHOCYTES % 20.3 % (15.0-51.0); MEAN CORPUSCULAR HEMOGLOBIN 27.3 pg (29.0-33.0); MEAN CORPUSCULAR HGB CONC 32.6 g/dl (32.0-37.0); MEAN CORPUSCULAR VOLUME 83.7 fl (82.0-101.0); MEAN PLATELET VOLUME 9.2 fl (7.4-10.4); MONOCYTE # 0.6 10^3/ul (0.3-0.9); MONOCYTES % 8.8 % (0.0-11.0); NEUTROPHIL # 4.5 10^3/ul (1.6-7.5); NEUTROPHILS % 66.6 % (39.0-77.0); PLATELET COUNT 211 10^3/UL (140-415); RED CELL DISTRIBUTION WIDTH 12.7 % (11.5-14.5); WHITE BLOOD COUNT 6.8 10^3/ul (4.8-10.8)
--- NOTE | 2017-05-01 16:30 | PN ---
Date/Time of Note Date/Time of Note DATE: 05/01/17 TIME: 16:29 Assessment/Plan VTE Prophylaxis VTE Prophylaxis Intervention: SCD's Lines/Catheters IV Catheter Type (from Nrsg): Peripheral IV Assessment/Plan Assessment/Plan 1. Facial plus bilateral upper and lower extremity redness and cellulitis: Slightly improved since yesterday, still present. s/p ID consult - MedSurg floor. Continue Zosyn and vancomycin broad-spectrum antibiotics, IV fluids. -Follow-up infectious disease recommendations -Tylenol as needed pain and fevers, follow final culture results and CBC in the morning 2. Obesity: Education about weight reduction 3. Possible depression/anger issue: Ativan as needed. If worsens, consider telemetry psych consult d/c IV morphine, switched to [place] and IV dialudid, olivia lrequest pain management consult to see pt Subjective 24 Hr Interval Summary Free Text/Dictation c/o pain in legs, said IV morphine not working , On IV Abx for cellulitis Exam/Review of Systems Vital Signs Vitals Vital Signs Date Time Temp Pulse Resp B/P Pulse Ox O2 Delivery O2 Flow Rate FiO2 05/01/17 14:33 97.7 69 18 135/73 92 05/01/17 06:42 Room Air Intake and Output 04/30/17 04/30/17 05/01/17 15:00 23:00 07:00 Intake Total 450 ml 2890 ml 2000 ml Output Total 1500 ml 1700 ml Balance 450 ml 1390 ml 300 ml Exam Obese, VSS, Afebrile, NAD HEENT within normal limits Neck is supple Chest Equal chest rise bilaterally without dyspnea on observation CV: radial pulse RRR Abdomen is soft, nontender Extremities: RUEXT edema w/chronic venous hyperpigmentation thickened skin w/ scale, superimposed erythema, dirty feet SKIN: no rash, no diaphoresis Results Result Diagram: 04/30/17 1354 04/30/17 1354 Results 24 hrs Laboratory Tests Test 05/01/17 16:12 White Blood Count Pending Red Blood Count Pending Hemoglobin Pending Hematocrit Pending Mean Corpuscular Volume Pending Mean Corpuscular Hemoglobin Pending Mean Corpuscular Hemoglobin Concent Pending Red Cell Distribution Width Pending Platelet Count Pending Mean Platelet Volume Pending Medications Medications Current Medications Ondansetron HCl (Zofran Inj) 4 mg Q6H PRN IV NAUSEA AND/OR VOMITING Last administered on 05/01/17 15:27; Admin Dose 4 MG; Start 04/29/17 at 17:30 Docusate Sodium (Colace) 100 mg Q12H PRN PO CONSTIPATION; Start 04/29/17 at 17: 30 Magnesium Hydroxide (Milk Of Mag) 30 ml DAILY PRN PO CONSTIPATION; Start at 17:30 Sodium Biphosphate/ Sodium Phosphate (Fleet Enema) 133 ml DAILY PRN [place] CONSTIPATION; Start 04/29/17 at 17:30 Heparin Sodium (Porcine) (Heparin (5000 Units/0.5 ml)) 5,000 unit Q12 SC Last administered on 04/30/17 20:31; Admin Dose 5,000 UNIT; Start 04/29/17 at 21:00 Lorazepam (Ativan) 0.5 mg Q6H PRN IV ANXIETY; Start 04/29/17 at 17:30 Vancomycin HCl (Vanco Iv Per Pharmacy) VANCOMYCIN PER PHARMACY NOTE XX ; Start 04/29/17 at 17:30 Hydralazine HCl (Apresoline) 10 mg Q6H PRN IV SBP > 180; Start 04/29/17 at 17:30 Nitroglycerin (Nitroglycerin (Sl Tab) 0.4 Mg) 1 tab Q5M PRN SL ANGINA; Start at 17:30 Tramadol HCl 50 mg 50 mg Q8H PRN PO PAIN Last administered on 04/30/17 14:50; Admin Dose 50 MG; Start 04/29/17 at 17:30 Piperacillin Sod/ Tazobactam Sod 100 ml @ 200 mls/hr Q6 IVPB Last administered on 05/01/17 11:44; Admin Dose 200 MLS/HR; Start 04/29/17 at 20:00 Vancomycin HCl/ Sodium Chloride (Vancocin/NS) 250 ml @ 83.333 mls/ hr Q8H IVPB Last administered on 05/01/17 12:45; Admin Dose 83.333 MLS/HR; Start 04/30/17 at 04:00 Phenol (Cepastat Lozenge) 1 lozenge Q1H PRN MT SORE THROAT Last administered on 04/30/17 13:19; Admin Dose 1 LOZENGE; Start 8/6/17 at 13:00 Baclofen (Lioresal) 25 mg Q8H PRN PO MUSCLE SPASMS Last administered on 21:05; Admin Dose 25 MG; Start 04/30/17 at 20:30 Acetaminophen (Tylenol Tab) 650 mg Q4H PRN PO PAIN LEVEL 1-3 OR FEVER; Start at 15:30 Acetaminophen/ Hydrocodone Bitart ([place] (10/325)) 1 tab Q4H PRN NGT moderate pain; Start 05/01/17 at 13:00 Hydromorphone HCl (Dilaudid) 2 mg Q4H PRN IV severe pain Last administered on 12:52; Admin Dose 2 MG; Start 05/01/17 at 13:00 Miscellaneous Information (*Rx Drug Level Order Reminder*) VANCOMYCIN TROUGH 05/02 AT 1100 ONCE ONCE XX ; Start 05/02/17 at 11:00; Stop 05/02/17 at 11:01 ABENA DAMIAN MD May 01, 2017 16:30
[2017-05-01 16:40] LABS: CALCIUM 9.5 mg/dl (8.4-10.2); CREATININE 1.03 mg/dl (0.61-1.24); POTASSIUM 4.4 mmol/L (3.5-5.1)
[2017-05-01] MEDS ORDERED: HYDROCODONE/APAP (10/325) TAB ONE (19:58)
[2017-05-01 20:19] VITALS: BP 137/73; RESP 18
[2017-05-01] MEDS: HEPARIN 5,000 UNIT/0.5 ML VIAL SC SCH (21:00)
[2017-05-01] MEDS ORDERED: HYDROCODONE/APAP (10/325) TAB PO PRN (21:00)
--- NOTE | 2017-05-01 23:02 | CONS ---
Date/Time of Note Date/Time of Note DATE: 05/01/17 TIME: 23:00 Assessment/Plan Assessment/Plan Chief Complaint/Hosp Course ID PROGRESS NOTE CURRENT ABX: =>Vanco IV #3 + Zosyn #23 24H INTERVAL SUMMARY * No fevers, VSS, sleeping * Urine with diptheroids = corynebacterium either skin or opportunistic coryne JK pathogen * Wound is growing staph aures pending final . WOUND CULTURE Preliminary Organism 1 STAPHYLOCOCCUS AUREUS QUANTITY 1+ EXAM Obese, VSS, Afebrile, NAD HEENT within normal limits Neck is supple Chest Equal chest rise bilaterally without dyspnea on observation CV: radial pulse RRR Abdomen is soft, nontender Extremities: RUEXT edema w/chronic venous hyperpigmentation thickened skin w/ scale, superimposed erythema, dirty feet SKIN: no rash, no diaphoresis ID ASSESSMENT 32 yo M PMHx obesity, meningitis, admit with: 1. Acute recurrent right lateral lower extremity cellulitis failing outpatient antibiotic treatment. * Recurrent issue with 5 prior visits to [facility] for same complaint. * Followed by Dr. Tineo for this problem outpatient Dr. Raul Tineo MD ; [address], [place] [address]: 2. Persistent RLEXT lymphedema from his obesity => Venous insufficiency * (-)DVT Venous Doppler x2 @ [facility] (05/2016 & 07/2015) * 08/09/2015 Tibia/Fibula X-Ray: Normal right tibia and fibula. 3. RLEXT leg pain 4. Hx of R arthroscopic knee surgery 2000 5. Chronic back pain -> Hx of OxyContin + Robaxin Rx 6. Psych Dx NOS: "Anger & Frustration" issues per patient report 7. Recurrent requests for strong opioids for his pain issues; (+)Drug-seeking behavior. ABX ALLERGY: NONE to ABX CURRENT ABX:=>Vanco IV #3 + Zosyn #3 ID RECOMMENDATIONS 1. Check MRSA Nares 2. Continue IV ABX -> Anticipate change ABX to PO Bactrim + Keflex when edema and erythema improves. 3. Await final result of wound cx pending: WOUND CULTURE Preliminary Organism 1 STAPHYLOCOCCUS AUREUS QUANTITY 1+ . Problems: Consultation Date/Type/Reason Admit Date/Time Apr 29, 2017 at 16:47 Initial Consult Date 04/29/17 Type of Consultation: ID Exam/Review of Systems Vital Signs Vitals Vital Signs Date Time Temp Pulse Resp B/P Pulse Ox O2 Delivery O2 Flow Rate FiO2 05/01/17 20:19 98.0 58 18 137/73 98 05/01/17 06:42 Room Air Intake and Output 04/30/17 04/30/17 05/01/17 15:00 23:00 07:00 Intake Total 450 ml 2890 ml 2000 ml Output Total 1500 ml 1700 ml Balance 450 ml 1390 ml 300 ml Results Result Diagram: 05/01/17 1612 05/01/17 1612 Results 24 hrs Laboratory Tests Test 05/01/17 16:12 White Blood Count 6.8 Red Blood Count 5.20 Hemoglobin 14.2 Hematocrit 43.5 Mean Corpuscular Volume 83.7 Mean Corpuscular Hemoglobin 27.3 L Mean Corpuscular Hemoglobin Concent 32.6 Red Cell Distribution Width 12.7 Platelet Count 211 Mean Platelet Volume 9.2 Neutrophils % 66.6 Lymphocytes % 20.3 Monocytes % 8.8 Eosinophils % 3.5 Basophils % 0.4 Nucleated Red Blood Cells % 0.0 Neutrophils # 4.5 Lymphocytes # 1.4 Monocytes # 0.6 Eosinophils # 0.2 Basophils # 0.0 Nucleated Red Blood Cells # 0.0 Sodium Level 142 Potassium Level 4.4 Chloride Level 99 Carbon Dioxide Level 27 Anion Gap 20 H Blood Urea Nitrogen 9 Creatinine 1.03 Glucose Level 113 Calcium Level 9.5 Medications Medications Current Medications Ondansetron HCl (Zofran Inj) 4 mg Q6H PRN IV NAUSEA AND/OR VOMITING Last administered on 05/01/17 22:27; Admin Dose 4 MG; Start 04/29/17 at 17:30 Docusate Sodium (Colace) 100 mg Q12H PRN PO CONSTIPATION; Start 04/29/17 at 17: 30 Magnesium Hydroxide (Milk Of Mag) 30 ml DAILY PRN PO CONSTIPATION; Start at 17:30 Sodium Biphosphate/ Sodium Phosphate (Fleet Enema) 133 ml DAILY PRN [place] CONSTIPATION; Start 04/29/17 at 17:30 Heparin Sodium (Porcine) (Heparin (5000 Units/0.5 ml)) 5,000 unit Q12 SC Last administered on 04/30/17 20:31; Admin Dose 5,000 UNIT; Start 04/29/17 at 21:00 Lorazepam (Ativan) 0.5 mg Q6H PRN IV ANXIETY; Start 04/29/17 at 17:30 Vancomycin HCl (Vanco Iv Per Pharmacy) VANCOMYCIN PER PHARMACY NOTE XX ; Start 04/29/17 at 17:30 Hydralazine HCl (Apresoline) 10 mg Q6H PRN IV SBP > 180; Start 04/29/17 at 17:30 Nitroglycerin (Nitroglycerin (Sl Tab) 0.4 Mg) 1 tab Q5M PRN SL ANGINA; Start at 17:30 Tramadol HCl 50 mg 50 mg Q8H PRN PO PAIN Last administered on 04/30/17 14:50; Admin Dose 50 MG; Start 04/29/17 at 17:30 Piperacillin Sod/ Tazobactam Sod 100 ml @ 200 mls/hr Q6 IVPB Last administered on 05/01/17 17:09; Admin Dose 200 MLS/HR; Start 04/29/17 at 20:00 Vancomycin HCl/ Sodium Chloride (Vancocin/NS) 250 ml @ 83.333 mls/ hr Q8H IVPB Last administered on 05/01/17 20:07; Admin Dose 83.333 MLS/HR; Start 04/30/17 at 04:00 Phenol (Cepastat Lozenge) 1 lozenge Q1H PRN [place] SORE THROAT Last administered on 04/30/17 13:19; Admin Dose 1 LOZENGE; Start 04/30/17 at 13:00 Baclofen (Lioresal) 25 mg Q8H PRN PO MUSCLE SPASMS Last administered on 21:05; Admin Dose 25 MG; Start 04/30/17 at 20:30 Acetaminophen (Tylenol Tab) 650 mg Q4H PRN PO PAIN LEVEL 1-3 OR FEVER; Start at 15:30 Hydromorphone HCl (Dilaudid) 2 mg Q4H PRN IV severe pain Last administered on 22:20; Admin Dose 2 MG; Start 05/01/17 at 13:00 Miscellaneous Information (*Rx Drug Level Order Reminder*) VANCOMYCIN TROUGH 05/02 AT 1100 ONCE ONCE XX ; Start 05/02/17 at 11:00; Stop 05/02/17 at 11:01 Acetaminophen/ Hydrocodone Bitart ([place] (10/325)) 1 tab Q4H PRN PO moderate pain Last administered on 05/01/17t 20:00; Admin Dose 1 TAB; Start 05/01/17 at 21: 00 MIGUELITO MAYERS NP May 01, 2017 23:02
[2017-05-02] MEDS: PIPER-TAZO 3.375 GM IV (PMX) 100 ML IVPB SCH ×2 (00:25→06:00)
[2017-05-02] MEDS: VANCOMYCIN 1.25 GM in SOD CHLORIDE 0.9% 250 ML IVPB SCH (04:00)
[2017-05-02 13:06] LABS: ANA SCREEN NEGATIVE (NEGATIVE)
--- NOTE | 2017-05-02 23:32 | DS ---
Date/Time of Note Date/Time of Note DATE: 05/02/17 TIME: 23:27 Discharge Summary Admission/Discharge Info Admit Date/Time Apr 29, 2017 at 16:47 Discharge Date/Time May 02, 2017 at 09:46 - pt signed out against medical advise Discharge Diagnosis 1. Facial plus bilateral upper and lower extremity redness and cellulitis: 2. Morbid obesity 3. Drug seeking Behaviour including narcotic/dilaudid Patient Condition: Good Consults Infectious disease consult Dr. Donald, Pain management consult Dr. Arnold Procedures None Hx of Present Illness 32-year-old male past medical history of obesity, prior cellulitis, possible drug-seeking behavior, meningitis, questionable psychiatric history, who presents with lower extremity redness and pain. He says his symptoms have been going on for the last few weeks. He does not quantify anymore. He says his primary care doctor Dr. Tineo in [place] about 10 days ago prescribed him p.o. antibiotics he believes clindamycin and Bactrim p.o. he took these for the full 10 days he claims, but his symptoms did not improve. Denied any fevers or chills, no chest pain no shortness of breath no upper or lower GI bleeding, no diarrhea or constipation, no nausea or vomiting. Hospital Course pt was admitted with bilateral Upper and lower extremity cellulitis with facial cellulitis, he was seen by ID . continued on IV abx. Remained Afebrile , WBC count better. Pt was constantly c/o pain not relieved with IV morphine. then he was seen by - on 05/02/17 pt signed out Against medical advise. he was advised about risk of signing out AMA including possible / he undersood and verbalized understanding to nursing staff Home Meds Active Scripts Tramadol HCl (Tramadol HCl) 50 Mg Tablet, 50 MG PO Q8H Y for PAIN, #120 TAB Prov:OZZIE GROSS MD 05/29/16 Clindamycin Hcl* (Clindamycin Hcl*) 300 Mg Capsule, 600 MG PO Q8 for 8 Days, CAP Prov:OZZIE GROSS MD 05/29/16 Reported Medications Divalproex Sodium* (Divalproex Sodium*) 125 Mg Cap.sprink, 250 MG PO BID, #240 CAP 04/29/17 Hydrocodone Bit-Acetaminophen (Hydrocodone Bit-APAP) 5-325MG Tablet, 1 TAB PO Q6H Y for PAIN, TAB 04/29/17 Doxycycline Monohydrate* (Doxycycline Monohydrate*) 100 Mg Tablet, 100 MG PO BID , TAB 04/29/17 Follow-up Plan pt did not wait for Follow up appointment and prescription, he signed out against medical advise. Primary Care Provider Not On Staff Doctor Time spent on discharge: > 30 minutes ABENA DAMIAN MD May 02, 2017 23:32
== END 2017-05-02 09:46 | disposition left against medical advice (07) | DRG 603 ==
LOC: E/R 13:39 → PP2 16:47
PROVIDERS: ADMIT Hospitalist; ATTEND Hospitalist
DX: L03.115 Cellulitis of right lower limb (principal); F32.9 Major depressive disorder, single episode, unspecified; L03.211 Cellulitis of face; L03.114 Cellulitis of left upper limb; L03.113 Cellulitis of right upper limb; L03.116 Cellulitis of left lower limb; I89.0 Lymphedema, not elsewhere classified; M79.604 Pain in right leg; G89.29 Other chronic pain; R60.0 Localized edema; E66.9 Obesity, unspecified; M54.9 Dorsalgia, unspecified; Z88.6 Allergy status to analgesic agent; Z79.1 Long term (current) use of non-steroidal anti-inflammatories (NSAID); Z53.21 Procedure and treatment not carried out due to patient leaving prior to being seen by health care provider; Z71.3 Dietary counseling and surveillance; Z68.38 Body mass index [BMI] 38.0-38.9, adult; Z76.5 Malingerer [conscious simulation]
CPT/HCPCS: 36415; 80048; 80053; 80061; 81003; 83036; 83605; 83735; 84100; 84439; 84443; 85025; 85610; 85730; 86038; 87040; 87070; 87086; 96374; 96375; J1170; J1644; J1885; J2270; J2405; J2543; J3370; J7030; J7050